=== PATIENT | female | born 1960 | race African-American/Black ===

== ENCOUNTER 2016-10-29 19:06 | Emergency (ER) | payer MEDICAID, MEDICARE, OTHER ==
[~2016-10-29] VITALS: Ht 170.2 cm; Wt 106.8 kg
[~2016-10-29 19:06] MED LIST: AMLO-511 PO; ASPI-1093 PO; GABA-531 PO; HYDR25TA PO; LOSA50TA37 PO; PERCT10 PO; SIMV-259 PO
[2016-10-29 19:29] VITALS: BP 142/97
[2016-10-29] MEDS ORDERED: WARF5 PO ×2 (19:34)
[2016-10-29] MEDS ORDERED: FURO20 PO (19:34)
[2016-10-29] MEDS ORDERED: ATOR20TA86 PO (19:34)
== END 2016-10-29 21:24 | disposition home or self-care (01) ==
LOC: EMS 19:08
DX: S70.01XA Contusion of right hip, initial encounter (principal); S50.01XA Contusion of right elbow, initial encounter; M25.511 Pain in right shoulder; M25.561 Pain in right knee; M25.562 Pain in left knee; I10 Essential (primary) hypertension; I25.2 Old myocardial infarction; E78.00 Pure hypercholesterolemia, unspecified; Z91.040 Latex allergy status; Z88.5 Allergy status to narcotic agent; Z88.8 Allergy status to other drugs, medicaments and biological substances; W01.0XXA Fall on same level from slipping, tripping and stumbling without subsequent striking against object, initial encounter; Y93.89 Activity, other specified; Y92.89 Other specified places as the place of occurrence of the external cause; Y99.8 Other external cause status
CPT/HCPCS: 73521; 99284